=== PATIENT | female | born 1980 | race Caucasian/White ===

== ENCOUNTER 2017-12-17 00:51 | Emergency (ER) | payer OTHER ==
[2017-12-17] MEDS ORDERED: DIPH/PERTUSS(ACELL)/TETANUS VAC/PF 0.5 ML SYR (>=10YO) IM ONE (02:44)
[2017-12-17] MEDS ORDERED: AMOXICILLIN TR/POT CLAVULANATE 500-125 MG TAB PO ONE (02:54)
--- NOTE | 2017-12-17 02:56 | ER Document Report ---
ED General - General Chief Complaint: Dog Bite Stated Complaint: DOG BITE Time Seen by Provider: 12/17/17 02:46 Notes: Patient is a 37-year-old female who presents with complaint of a dog bite to the right forearm. It is a family dog and is up-to-date on vaccinations. She denies any other complaints. She says she is able to move her forearm without any pain or difficulty. Was numbness or tingling into the hand. No other complaints at this time. Tetanus is not up-to-date. - Related Data Allergies/Adverse Reactions: codeine Allergy (Verified 12/17/17 01:04) Sulfa (Sulfonamide Antibiotics) Allergy (Verified 12/17/17 01:04) Past Medical History - Social History Smoking Status: Never Smoker Frequency of alcohol use: None Drug Abuse: None Family History: Reviewed & Not Pertinent Review of Systems - Review of Systems Notes: My Normal Review Basic REVIEW OF SYSTEMS: CONSTITUTIONAL : Denies fever, chills, or sweats. Denies recent illness. MUSCULOSKELETAL: Dog bite to right forearm. NEUROLOGICAL: Denies sensory or motor loss. ALL OTHER SYSTEMS REVIEWED AND NEGATIVE. Physical Exam - Vital signs Vitals: Temp Pulse Resp BP Pulse Ox 98.4 F 78 16 107/64 98 12/17/17 01:02 12/17/17 01:02 12/17/17 01:02 12/17/17 01:02 12/17/17 01:02 - Notes Notes: General Appearance: Well nourished, alert, cooperative, no acute distress, no obvious discomfort. Extremities: strength 5/5 in all extremities, good pulses in all extremities, patient has 2 small puncture wounds to the right forearm consistent with a dog bite. Localized bruising. No significant erythema. No signs of infection at this time. Wound is clean as patient had just thoroughly irrigated with soap and water at home. She is able supinate and pronate form without any pain. She is able to fully flex and extend the elbow without pain. She is able move all fingers in her right hand without difficulty. Skin: warm, dry, appropriate color, no rash Neuro: speech clear, oriented x 3, normal affect, responds appropriately to questions. Course - Re-evaluation Re-evalutation: 12/17/17 06:44 Wound was wrapped with cover with Xeroform dressing. He was then wrapped with the Omi bandage. Patient prescribed Augmentin. She is to return to ER if she has spreading redness or swelling or if she has any concerns for signs of infection. I could see the wound down to the base. Is no evidence for foreign body. No need for x-ray at this time. Dictation of this chart was performed using voice recognition software; therefore, there may be some unintended grammatical errors. - Vital Signs Vital signs: Temp Pulse Resp BP Pulse Ox 98.2 F 70 16 110/62 99 12/17/17 03:05 12/17/17 03:05 12/17/17 03:05 12/17/17 03:05 12/17/17 03:05 Discharge - Discharge Clinical Impression: Dog bite Qualifiers: Encounter type: initial encounter Qualified Code(s): W54.0XXA - Bitten by dog, initial encounter Condition: Good Disposition: HOME, SELF-CARE Additional Instructions: Please return to the ER immediately if you develop redness, increasing swelling , fevers, or feel that your wound is becoming infected. Please clean every day with soap and water and apply a new clean non-stick dressing. Prescriptions: Amox Tr/Potassium Clavulanate [Augmentin 875-125 Tablet] 1 tab PO BID 7 Days # 14 tablet
[2017-12-17 03:08] VITALS: BP 110/62
== END 2017-12-17 03:05 | disposition home or self-care (01) ==
LOC: ER 00:51
DX: S51.851A Open bite of right forearm, initial encounter (principal); W54.0XXA Bitten by dog, initial encounter; Z23 Encounter for immunization; Z88.6 Allergy status to analgesic agent; Z88.2 Allergy status to sulfonamides
CPT/HCPCS: 90471; 90715; 99283